=== PATIENT | female | born 1935 | race Caucasian/White ===

== ENCOUNTER 2016-08-30 11:21 | Emergency (ER) | payer MEDICARE ==
[~2016-08-30 11:21] MED LIST: ACET325T PO; APIX2.5T PO; CARD300C5 PO; CYCL1TAB29 PO; DIGO0.25 PO; DOCU100C PO; ISOS30TA3 PO; LISI-588 PO; MILKSUS PO; NEUR300C PO
[2016-08-30 11:24] VITALS: BP 162/77; PULSE 90; RESP 24; TEMP 97.4; O2SAT 98
[2016-08-30 11:30] VITALS: RESP 20; O2SAT 100
[2016-08-30] MEDS ORDERED: LORA-373 PO (11:39)
[2016-08-30] MEDS ORDERED: ASPI1TAB69 PO (11:39)
[2016-08-30] MEDS ORDERED: DIGO0.12 PO (11:39)
--- NOTE | 2016-08-30 11:42 | PD ---
HPI Chief Complaint: Chest Pain Time Seen by Provider: 11:41 Travel History International Travel<30 days: No Contact w/Intl Traveler<30days: No History of Present Illness HPI 79-year-old female with PMH of A. fib, HTN, HLD, COPD presents to the ED for evaluation less than 24 hour history of epigastric discomfort. Patient states symptoms onset last night after dinner. Rated 3/10, described as constant. Patient also complains of shortness of breath. Last bowel movement 2 days ago, nonbloody. She states this is her normal. She endorses occasional, nonproductive cough. She denies fevers, chills, diaphoresis, palpitations, abdominal pain, nausea, vomiting, dysuria, increased urinary urgency or back pain. She took an aspirin along with her daily medications this morning. She called her doctor's office for advice and was referred to the ED. PFSH Past Medical History Arthritis: Yes Asthma: No Blood Disorders: No Anxiety: Yes Depression: No Heart Rhythm Problems: No Cancer: No Cardiovascular Problems: Yes (PAD) High Cholesterol: Yes Chemotherapy: No Chest Pain: No Congestive Heart Failure: No COPD: Yes Cerebrovascular Accident: No Diminished Hearing: No Endocrine: No GERD: No Genitourinary: No Hiatal Hernia: No Hypertension: Yes Immune Disorder: No Implanted Vascular Access Dvce: Yes Kidney Stones: No Musculoskeletal: Yes (ARTHRITIS) Neurologic: No Psychiatric: Yes Reproductive: No Respiratory: Yes Migraines: No Radiation Therapy: No Renal Failure: No Seizures: No Sickle Cell Disease: No Sleep Apnea: No Ulcer: No : 0 Para: 0 Miscarriage: 0 : 0 Past Surgical History Abdominal Surgery: Yes (AAA 04/2011) AICD: No Arteriovenous Shunt: No Body Medical Devices: DIPAK EYE LENS Cardiac Surgery: No Ear Surgery: No Eye Surgery: Yes (DIPAK CATARACT SX) Genitourinary Surgery: No Gynecologic Surgery: Yes (HYST 1973) Hysterectomy: Yes Insulin Pump: No Joint Replacement: No Oral Surgery: Yes (3 teeth extracted) Pacemaker: No Thoracic Surgery: No Tonsillectomy: Yes Social History Alcohol Use: Yes (WINE DAILY) Tobacco Use: No (quit 1998) Substance Use: No Allergies-Medications (Allergen,Severity, Reaction): Coded Allergies: No Known Allergies (Verified , 08/30/16) Reported Meds & Prescriptions Reported Meds & Active Scripts Active Doxycycline (Doxycycline (Monohydrate)) 100 Mg Cap 100 Mg PO BID 7 Days Eliquis (Apixaban) 2.5 Mg Tab 2.5 Mg PO BID Reported Digoxin 0.125 Mg Tab 0.125 Mg PO DAILY Lorazepam 0.5 Mg Tab 0.5 Mg PO Q6H PRN Aspirin 81 Mg Tabdr 81 Mg PO DAILY Acetaminophen 325 Mg Tab 650 Mg PO Q4H PRN Isosorbide Mononitrate ER (Isosorbide Mononitrate) 30 Mg Lesia 30 Mg PO DAILY Zestril (Lisinopril) 2.5 Mg Tab 2.5 Mg PO HS Review of Systems Except as stated in HPI: all other systems reviewed are Neg Physical Exam Narrative GENERAL: Well-nourished, well-developed, pleasant elderly white female in no acute distress. SKIN: Warm and dry. HEAD: Normocephalic. EYES: No scleral icterus. No injection or drainage. NECK: Supple, trachea midline. No JVD or lymphadenopathy. CARDIOVASCULAR: Regular rate and rhythm without murmurs, gallops, or rubs. 2+ DP and radial pulses bilaterally. RESPIRATORY: Breath sounds clear and equal bilaterally. No accessory muscle use. GASTROINTESTINAL: Abdomen soft, nondistended. Tender to palpation in the right upper quadrant and epigastric areas. MUSCULOSKELETAL: No cyanosis, or edema. NEUROLOGICAL: Awake and alert. Cranial nerves II through XII intact. Motor and sensory grossly within normal limits. 5/5 muscle strength in all muscle groups. Normal speech. BACK: Nontender without obvious deformity. No CVA tenderness. Data Data Last Documented VS Vital Signs Date Time Temp Pulse Resp B/P Pulse Ox O2 Delivery O2 Flow Rate FiO2 08/30/16 12:11 70 154/73 143/80 08/30/16 11:30 20 100 Nasal Cannula 2 08/30/16 11:24 97.4 Orders Electrocardiogram (08/30/16 11:32) Basic Metabolic Panel (Bmp) (08/30/16 11:32) Ckmb (Isoenzyme) Profile (08/30/16 11:32) Complete Blood Count With Diff (08/30/16 11:32) Magnesium (Mg) (08/30/16 11:32) Prothrombin Time / Inr (Pt) (08/30/16 11:32) Act Partial Throm Time (Ptt) (08/30/16 11:32) Troponin I (08/30/16 11:32) Chest, Single Ap (08/30/16 11:32) Ecg Monitoring (08/30/16 11:32) Bilateral Bp Monitoring (08/30/16 11:32) Iv Access Insert/Monitor (08/30/16 11:32) Oximetry (08/30/16 11:32) Sodium Chloride 0.9% Flush (Ns Flush) (08/30/16 11:45) Lipase (08/30/16 11:45) Labs Laboratory Tests Test 08/30/16 11:45 White Blood Count 10.3 TH/MM3 Red Blood Count 4.58 MIL/MM3 Hemoglobin 13.4 GM/DL Hematocrit 39.1 % Mean Corpuscular Volume 85.4 FL Mean Corpuscular Hemoglobin 29.2 PG Mean Corpuscular Hemoglobin 34.2 % Concent Red Cell Distribution Width 16.0 % Platelet Count 239 TH/MM3 Mean Platelet Volume 9.0 FL Neutrophils (%) (Auto) 59.7 % Lymphocytes (%) (Auto) 32.4 % Monocytes (%) (Auto) 6.7 % Eosinophils (%) (Auto) 0.5 % Basophils (%) (Auto) 0.7 % Neutrophils # (Auto) 6.1 TH/MM3 Lymphocytes # (Auto) 3.3 TH/MM3 Monocytes # (Auto) 0.7 TH/MM3 Eosinophils # (Auto) 0.1 TH/MM3 Basophils # (Auto) 0.1 TH/MM3 CBC Comment DIFF FINAL Differential Comment Prothrombin Time 13.8 SEC Prothromb Time International 1.2 RATIO Ratio Activated Partial 28.4 SEC Thromboplast Time Sodium Level 137 MEQ/L Potassium Level 3.7 MEQ/L Chloride Level 101 MEQ/L Carbon Dioxide Level 25.1 MEQ/L Anion Gap 11 MEQ/L Blood Urea Nitrogen 23 MG/DL Creatinine 0.90 MG/DL Estimat Glomerular Filtration 60 ML/MIN Rate Random Glucose 120 MG/DL Calcium Level 9.6 MG/DL Magnesium Level 2.0 MG/DL Total Creatine Kinase 56 U/L Troponin I LESS THAN 0.02 NG/ML Lipase 92 U/L MDM Medical Decision Making Medical Screen Exam Complete: Yes Emergency Medical Condition: Yes Interpretation(s) EKG rate 81, sinus rhythm. SD interval 174, QRS 95, QTC 337. Normal axis. No ST elevations or depressions. Reviewed by Dr. Deluca. Differential Diagnosis Angina versus ACS versus GERD versus PUD versus pneumonia versus other Narrative Course 79-year-old female with PMH of A. fib, HTN, HLD, COPD presents to the ED for evaluation less than 24 hour history of epigastric discomfort. Symptoms onset last night after dinner. Rated 3/10, constant, accompanied by SOB. Last bowel movement 2 days ago, nonbloody. She states this is her normal. She endorses occasional, nonproductive cough. She denies fevers, chills, diaphoresis, palpitations, abdominal pain, nausea, vomiting, dysuria, increased urinary urgency or back pain. Took an aspirin this AM with no improvement of symptoms. Vitals reviewed. Physical exam reveals a nontoxic-appearing elderly white female in no acute distress. No appreciable M/R/G. Breath sounds clear and equal bilaterally. Abdomen tender to palpation in the epigastric area and right upper quadrant. Equal distal pulses bilaterally. No lower extremity edema. Patient was placed on continuous monitoring. IV was established. CBC: WBC 10.3, hemoglobin 13.4. INR 1.2. CMP: BUN 23. Lipase 92 Cardiac enzymes negative x 1. Chest x-ray: Localized area of mild consolidation in the right midlung questionable pneumonia or mass. Follow-up x-ray recommended in 3 weeks. EKG as above. Given her shortness of breath will treat for this questionable early pneumonia. Prescribed doxycycline 100 mg twice a day 7 days. Will defer treatment with PPI's to the primary care as patient takes digoxin. Patient is instructed to take all medication as prescribed, follow up with her primary care provider this week. Patient states she has follow-up with Dr. Keane on Wednesday and Dr. Caban on Wednesday. She was provided a copy of the x-ray report. We discussed reasons to return to the ED. She indicated understanding of the instructions and was amenable to plan of care. Patient is stable and discharged home. Diagnosis Primary Impression: Epigastric abdominal pain Additional Impression: Community acquired pneumonia Referrals: Primary Care Physician Patient Instructions: Community Acquired Pneumonia (ED), General Instructions Additional Instructions: Rest, hydrate. Take all medication as prescribed, even if your symptoms resolved. Ask Dr. Keane is proton pump inhibitors are safe for you. Follow up with Dr. Keane and Dr. Jamidar as planned. Return to the ED for any urgent or emergent medical condition. Med/Other Pt SpecificInfo: Prescription(s) given Scripts Doxycycline (Monohydrate) (Doxycycline)100 Mg [id number] Mg PO BID 7 Days Prov:Ran Deluca MD 08/30/16 Disposition: 01 DISCHARGE HOME Condition: Stable Angie Bañuelos Aug 30, 2016 11:42
[2016-08-30] MEDS ORDERED: SODIUM CHLORIDE 0.9% FLUSH 5 ML FLUSH IVF PRN (11:45)
--- NOTE | 2016-08-30 11:53 | RADRPT ---
EXAM DATE/TIME: 08/30/2016 11:32 [facility] COMPARISON: CHEST PA & LAT, May 14, 2016, 12:37. INDICATIONS : Chest Discomfort, Pressure. Short of Breath. MEDICAL HISTORY : Chronic obstructive pulmonary disease. Cardiovascular disease. Hypertension. Aneurysm, abdomina l. SURGICAL HISTORY : Abdominal aortic aneurysm repair. Hysterectomy. ENCOUNTER: Initial ACUITY: 1 day PAIN SCORE: 2/10 LOCATION: Bilateral chest FINDINGS: Mild, patchy infiltrates seen in the right midlung. Lungs otherwise appear clear. No pleural effusion seen. No pneumothorax. Heart size stable, upper limits of normal. Thoracic aorta is tortuous and atherosclerotic. CONCLUSION: Localized area of mild consolidation in the right midlung, presumably pneumonia although a mass could appear similar. Medical management and followup 2 view chest x-ray in approximately 3 weeks recommen ded. Ajit Vazquez MD on August 30, 2016 at 11:50 Board Certified Radiologist. This report was verified electronically.
[2016-08-30 12:04] LABS: AUTOMATED NEUTROPHIL # 6.1 TH/MM3 (1.8-7.7); BASOPHIL # 0.1 TH/MM3 (0-0.2); BASOPHIL % 0.7 % (0.0-2.0); EOSINOPHIL # 0.1 TH/MM3 (0-0.4); EOSINOPHIL % 0.5 % (0.0-4.0); HEMATOCRIT 39.1 % (35.0-46.0); HEMO FLAGS DIFF FINAL; LYMPH % 32.4 % (9.0-44.0); LYMPHOCYTE # 3.3 TH/MM3 (1.0-4.8); MEAN CELL VOLUME 85.4 FL (80.0-100.0); MEAN CORPUSCULAR HEMOGLOBIN 29.2 PG (27.0-34.0); MEAN CORPUSCULAR HGB CONC 34.2 % (32.0-36.0); MONO % 6.7 % (0.0-8.0); NEUT % 59.7 % (16.0-70.0); PLATELET COUNT 239 TH/MM3 (150-450); RED BLOOD COUNT 4.58 MIL/MM3 (4.00-5.30); WHITE BLOOD COUNT 10.3 TH/MM3 (4.0-11.0)
[2016-08-30 12:11] VITALS: BP_SYST 143; BP_SYST 154; BP_DIAS 73; BP_DIAS 80; PULSE 70
[2016-08-30 12:11] LABS: APTT (PATIENT) 28.4 SEC (24.3-30.1); INTERNATIONAL NORMALIZED RATIO 1.2 RATIO; PROTHROMBIN TIME - PATIENT 13.8 SEC (9.8-11.6)
[2016-08-30 12:17] LABS: ANION GAP 11 MEQ/L (5-15); BICARBONATE 25.1 MEQ/L (21.0-32.0); BLOOD UREA NITROGEN 23 MG/DL (7-18); CHLORIDE 101 MEQ/L (98-107); GLOMERULAR FILTRATION RATE 60 ML/MIN (>89); POTASSIUM 3.7 MEQ/L (3.5-5.1); SODIUM (NA) 137 MEQ/L (136-145)
[2016-08-30 12:23] LABS: CREATINE KINASE 56 U/L (26-192)
[2016-08-30] MEDS ORDERED: DOXY1CAP91 PO (13:24)
--- NOTE | 2016-08-30 13:24 | EKG ---
Date Performed: 08/30/2016 Time Performed: 11:32:44 PTAGE: 81 years EKG: Sinus rhythm NONSPECIFIC ST ABNORMALITY BORDERLINE ECG PREVIOUS TRACING : 05/17/2016 12.32 Compared to previous tracing, sinus rhythm has replaced atr ial fibrillation. DOCTOR: Rich Garcia Interpretating Date/Time 08/30/2016 13:24:06
== END 2016-08-30 14:17 | disposition home or self-care (01) ==
LOC: NEPC 11:21
DX: R10.13 Epigastric pain (principal); J18.9 Pneumonia, unspecified organism; J44.9 Chronic obstructive pulmonary disease, unspecified; I10 Essential (primary) hypertension; I48.91 Unspecified atrial fibrillation; Z79.01 Long term (current) use of anticoagulants; Z87.891 Personal history of nicotine dependence
CPT/HCPCS: 71010; 80048; 82550; 83690; 83735; 84484; 85025; 85610; 85730; 93005

== ENCOUNTER 2017-01-17 11:10 | Emergency (ER) | payer MEDICARE ==
[~2017-01-17] VITALS: Ht 160 cm; Wt 57.0 kg
[~2017-01-17 11:10] MED LIST changes: +ASPI1TAB69 PO; -CARD300C5 PO; -CYCL1TAB29 PO; +DIGO0.12 PO; -DIGO0.25 PO; -DOCU100C PO; +DOXY1CAP91 PO; +LORA-373 PO; -MILKSUS PO; -NEUR300C PO
[2017-01-17 11:12] VITALS: BP 213/99; PULSE 74; RESP 20; TEMP 97.9; O2SAT 99
[2017-01-17 11:29] VITALS: BP 203/111; PULSE 74; RESP 20; TEMP 98.6; O2SAT 93
[2017-01-17] MEDS ORDERED: hydrALAZINE HCL 20 MG/ML VIAL IV PUSH ONE (11:30)
[2017-01-17] MEDS ORDERED: SODIUM CHLORIDE 0.9% FLUSH 10 ML FLUSH IVF PRN (11:30)
--- NOTE | 2017-01-17 11:41 | PD ---
HPI Chief Complaint: Hypertension Time Seen by Provider: 11:32 Travel History International Travel<30 days: No Contact w/Intl Traveler<30days: No Traveled to known affect area: No History of Present Illness HPI Patient is an 82-year-old well-appearing female presenting for evaluation of elevated blood pressure readings. Patient has a history of hypertension, she states she took her medications at 7 AM this morning. This morning she drank orange juice and coffee, she started burping so she took Maalox, this made her feel jumpy so she checked her blood pressure, she got a reading of 195/91. She called her primary doctor who advised her to come to the emergency department. She denies any abdominal pain, nausea, vomiting, chest pain. She states that she is short of breath, she has a history of COPD. She reports feeling more short of breath since August or September when she was started on flecainide. She denies any activity intolerance, she states that she attempts to walk most days, she is limited by knee pain. PFSH Past Medical History Hx Anticoagulant Therapy: Yes (ELIQUIS) AAA: Yes Arthritis: Yes Asthma: No Atrial Fibrillation: Yes Blood Disorders: No Anxiety: Yes Depression: No Cancer: No High Cholesterol: Yes Chemotherapy: No Chest Pain: No Congestive Heart Failure: No COPD: Yes Cerebrovascular Accident: No Diminished Hearing: No Endocrine: No GERD: No Genitourinary: No Hiatal Hernia: No Hypertension: Yes Immune Disorder: No Kidney Stones: No Neurologic: No Reproductive: No Migraines: No Radiation Therapy: No Renal Failure: No Seizures: No Sickle Cell Disease: No Sleep Apnea: No Ulcer: No Tetanus Vaccination: Unknown ?: Not : 0 Para: 0 Miscarriage: 0 : 0 Past Surgical History Abdominal Surgery: Yes (AAA 04/2011) AICD: No Arteriovenous Shunt: No Body Medical Devices: DIPAK EYE LENS Cardiac Surgery: No Ear Surgery: No Eye Surgery: Yes (DIPAK CATARACT SX) Genitourinary Surgery: No Hysterectomy: Yes Insulin Pump: No Joint Replacement: No Pacemaker: No Thoracic Surgery: No Tonsillectomy: Yes Social History Alcohol Use: Yes (WINE DAILY) Tobacco Use: No (quit 1998) Substance Use: No Allergies-Medications (Allergen,Severity, Reaction): Coded Allergies: No Known Allergies (Verified , 01/17/17) Reported Meds & Prescriptions Reported Meds & Active Scripts Active Eliquis (Apixaban) 2.5 Mg Tab 2.5 Mg PO BID Reported Digoxin 0.125 Mg Tab 0.125 Mg PO DAILY Lorazepam 0.5 Mg Tab 0.5 Mg PO Q6H PRN Zestril (Lisinopril) 2.5 Mg Tab 2.5 Mg PO HS Review of Systems Except as stated in HPI: all other systems reviewed are Neg General / Constitutional: No: Fever, Chills Eyes: No: Blurred Vision HENT: No: Headaches, Lightheadedness Cardiovascular: No: Chest Pain or Discomfort, Palpitations, Dyspnea on exertion , Edema Respiratory: Positive: Shortness of Breath (appears chronic) Gastrointestinal: Positive: Indigestion, No: Nausea, Vomiting, Abdominal Pain Musculoskeletal: No: Myalgias Neurologic: No: Weakness, Dizziness, Syncope, Focal Abnormalities Physical Exam Narrative GENERAL: Well-appearing, well-developed, well-nourished elderly female. Resting in no acute distress. SKIN: Focused skin assessment warm/dry. HEAD: Atraumatic. Normocephalic. EYES: Pupils equal and round. No scleral icterus. No injection or drainage. ENT: No nasal bleeding or discharge. Mucous membranes pink and moist. NECK: Trachea midline. No JVD. CARDIOVASCULAR: Regular rate and rhythm. No murmur appreciated. RESPIRATORY: No accessory muscle use. Clear to auscultation. Breath sounds equal bilaterally. GASTROINTESTINAL: Abdomen soft, non-tender, nondistended. Hepatic and splenic margins not palpable. MUSCULOSKELETAL: No obvious deformities. No clubbing. No cyanosis. No edema. NEUROLOGICAL: Awake and alert. No obvious cranial nerve deficits. Motor grossly within normal limits. Normal speech. PSYCHIATRIC: Appropriate mood and affect; insight and judgment normal. Data Data Last Documented VS Vital Signs Date Time Temp Pulse Resp B/P Pulse Ox O2 Delivery O2 Flow Rate FiO2 01/17/17 12:11 74 20 143/68 97 Nasal Cannula 2 01/17/17 11:29 98.6 Orders Electrocardiogram (01/17/17 11:30) Ckmb (Isoenzyme) Profile (01/17/17 11:30) Complete Blood Count With Diff (01/17/17 11:30) Comprehensive Metabolic Panel (01/17/17 11:30) Magnesium (Mg) (01/17/17 11:30) Prothrombin Time / Inr (Pt) (01/17/17 11:30) Act Partial Throm Time (Ptt) (01/17/17 11:30) Troponin I (01/17/17 11:30) Lipase (01/17/17 11:30) Chest, Single Ap (01/17/17 11:30) Ecg Monitoring (01/17/17 11:30) Bilateral Bp Monitoring (01/17/17 11:30) Iv Access Insert/Monitor (01/17/17 11:30) Oximetry (01/17/17 11:30) Oxygen Administration (01/17/17 11:30) Sodium Chloride 0.9% Flush (Ns Flush) (01/17/17 11:30) Hydralazine Inj (Apresoline Inj) (01/17/17 11:30) Ct Thorax/ Chest W Iv Contrast (01/17/17 ) Sodium Chlorid 0.9% 500 Ml Inj (Ns 500 M (01/17/17 12:45) Iohexol 350 Inj (Omnipaque 350 Inj) (01/17/17 12:55) Labs Laboratory Tests Test 01/17/17 11:30 White Blood Count 9.9 TH/MM3 Red Blood Count 5.02 MIL/MM3 Hemoglobin 14.4 GM/DL Hematocrit 44.0 % Mean Corpuscular Volume 87.7 FL Mean Corpuscular Hemoglobin 28.7 PG Mean Corpuscular Hemoglobin 32.7 % Concent Red Cell Distribution Width 15.3 % Platelet Count 259 TH/MM3 Mean Platelet Volume 8.4 FL Neutrophils (%) (Auto) 61.3 % Lymphocytes (%) (Auto) 29.3 % Monocytes (%) (Auto) 7.6 % Eosinophils (%) (Auto) 0.9 % Basophils (%) (Auto) 0.9 % Neutrophils # (Auto) 6.0 TH/MM3 Lymphocytes # (Auto) 2.9 TH/MM3 Monocytes # (Auto) 0.8 TH/MM3 Eosinophils # (Auto) 0.1 TH/MM3 Basophils # (Auto) 0.1 TH/MM3 CBC Comment DIFF FINAL Differential Comment Prothrombin Time 13.5 SEC Prothromb Time International 1.2 RATIO Ratio Activated Partial 29.2 SEC Thromboplast Time Sodium Level 138 MEQ/L Potassium Level 3.9 MEQ/L Chloride Level 100 MEQ/L Carbon Dioxide Level 27.7 MEQ/L Anion Gap 10 MEQ/L Blood Urea Nitrogen 24 MG/DL Creatinine 1.01 MG/DL Estimat Glomerular Filtration 52 ML/MIN Rate Random Glucose 113 MG/DL Calcium Level 9.5 MG/DL Magnesium Level 2.2 MG/DL Total Bilirubin 0.6 MG/DL Aspartate Amino Transf 16 U/L (AST/SGOT) Alanine Aminotransferase 16 U/L (ALT/SGPT) Alkaline Phosphatase 134 U/L Total Creatine Kinase 66 U/L Troponin I LESS THAN 0.02 NG/ML Total Protein 8.4 GM/DL Albumin 4.1 GM/DL Lipase 86 U/L [facility] Medical Decision Making Medical Screen Exam Complete: Yes Emergency Medical Condition: Yes Interpretation(s) Last Impressions Chest X-Ray 01/17/17 1130 Signed Impressions: Service Date/Time: Tuesday, January 17, 2017 11:32 - CONCLUSION: Enlarging rounded opacity within the right lung base. CT of the thorax should be considered to evaluate for possible mass. COPD Benjamin Polanco MD Chest CT 01/17/17 0000 Signed Impressions: Service Date/Time: Tuesday, January 17, 2017 12:50 - CONCLUSION: Right upper lobe , right middle lobe masses with airspace process right lower lobe and nodule within the lingula. These are associated with bronchi could potentially be inflammatory process and pneumonia, however underlying malignancy is not excluded. Radha Martin MD Laboratory Tests Test 01/17/17 11:30 White Blood Count 9.9 TH/MM3 Red Blood Count 5.02 MIL/MM3 Hemoglobin 14.4 GM/DL Hematocrit 44.0 % Mean Corpuscular Volume 87.7 FL Mean Corpuscular Hemoglobin 28.7 PG Mean Corpuscular Hemoglobin 32.7 % Concent Red Cell Distribution Width 15.3 % Platelet Count 259 TH/MM3 Mean Platelet Volume 8.4 FL Neutrophils (%) (Auto) 61.3 % Lymphocytes (%) (Auto) 29.3 % Monocytes (%) (Auto) 7.6 % Eosinophils (%) (Auto) 0.9 % Basophils (%) (Auto) 0.9 % Neutrophils # (Auto) 6.0 TH/MM3 Lymphocytes # (Auto) 2.9 TH/MM3 Monocytes # (Auto) 0.8 TH/MM3 Eosinophils # (Auto) 0.1 TH/MM3 Basophils # (Auto) 0.1 TH/MM3 CBC Comment DIFF FINAL Differential Comment Prothrombin Time 13.5 SEC Prothromb Time International 1.2 RATIO Ratio Activated Partial 29.2 SEC Thromboplast Time Sodium Level 138 MEQ/L Potassium Level 3.9 MEQ/L Chloride Level 100 MEQ/L Carbon Dioxide Level 27.7 MEQ/L Anion Gap 10 MEQ/L Blood Urea Nitrogen 24 MG/DL Creatinine 1.01 MG/DL Estimat Glomerular Filtration 52 ML/MIN Rate Random Glucose 113 MG/DL Calcium Level 9.5 MG/DL Magnesium Level 2.2 MG/DL Total Bilirubin 0.6 MG/DL Aspartate Amino Transf 16 U/L (AST/SGOT) Alanine Aminotransferase 16 U/L (ALT/SGPT) Alkaline Phosphatase 134 U/L Total Creatine Kinase 66 U/L Troponin I LESS THAN 0.02 NG/ML Total Protein 8.4 GM/DL Albumin 4.1 GM/DL Lipase 86 U/L Vital Signs Date Time Temp Pulse Resp B/P Pulse Ox O2 Delivery O2 Flow Rate FiO2 01/17/17 11:29 98.6 74 20 203/111 93 Room Air 01/17/17 11:12 97.9 74 20 213/99 99 Room Air Differential Diagnosis Malignant hypertension versus anxiety versus gastritis versus ACS versus electrolyte abnormality versus other Narrative Course Patient is an 82-year-old female presenting for evaluation of hypertension. She has no other complaints except mild shortness of breath which is likely secondary to her COPD. No orthopnea, exercise intolerance Abnormal findings on auscultation. Labs, imaging, EKG ordered and pending. Hydralazine ordered for blood pressure management. CBC is unremarkable, chemistry with a slight bump in the BUN and creatinine. Coags are unremarkable. Chest x-ray read by radiologist shows Enlarging rounded opacity within the right lung base. CT of the thorax should be considered to evaluate for possible mass. CT scan of the chest ordered and pending. Discussed with patient that there was an abnormal finding on her chest x-ray and that we would be obtaining a CAT scan of her chest. Patient's blood pressure has normalized, patient is resting comfortably. EKG shows sinus rhythm with a rate of 72 Cardiac enzymes negative [address] of the chest shows a right upper, middle lobe masses with airspace process in the right lower lobe nodule within the lingula. These are associated bronchitis potentially inflammatory process and pneumonia however an underlying malignancy is not excluded. The findings were discussed with on-call physician for patient's primary care provider. Patient was given the choice to be admitted or to follow-up in the office. Patient requesting to follow-up in the office. Patient appears well, no other acute findings identified today. Her blood pressure has normalized. Patient was advised to follow-up with Dr. Keane tomorrow, she was advised to return to emergency department immediately for any new or worsening symptoms. Patient will be started on an antibiotics empirically. Patient verbalized understanding of discharge instructions, CT scan results. Patient is stable for discharge. Diagnosis Primary Impression: HTN (hypertension) Qualified Code: I10 - Hypertension, unspecified type Additional Impressions: Mass of right lung Pneumonia Qualified Code: J18.9 - Pneumonia of right lung due to infectious organism, unspecified part of lung Referrals: Primary Care Physician Follow-up with Dr. Keane in one to 2 days, call office for appointment Patient Instructions: Community Acquired Pneumonia (GEN), General Instructions , Hypertension (ED) Additional Instructions: Follow-up with Dr. Keane in one to 2 days Return to emergency department immediately for any new or worsening symptoms Take medications as directed Med/Other Pt SpecificInfo: Prescription(s) given Scripts Amoxicillin-Clavulanate (Augmentin)875-125 Mg Tab1 Tab PO BID 10 Days Ref 0 Prov:Hattie Wallace 01/17/17 Disposition: 01 DISCHARGE HOME Condition: Stable Hattie Wallace Jan 17, 2017 11:41
[2017-01-17 11:44] VITALS: RESP 18; O2SAT 98
[2017-01-17 11:59] LABS: BASOPHIL # 0.1 TH/MM3 (0-0.2); BASOPHIL % 0.9 % (0.0-2.0); EOSINOPHIL # 0.1 TH/MM3 (0-0.4); EOSINOPHIL % 0.9 % (0.0-4.0); HEMO FLAGS DIFF FINAL; LYMPH % 29.3 % (9.0-44.0); LYMPHOCYTE # 2.9 TH/MM3 (1.0-4.8); MEAN CELL VOLUME 87.7 FL (80.0-100.0); MEAN CORPUSCULAR HEMOGLOBIN 28.7 PG (27.0-34.0); MEAN CORPUSCULAR HGB CONC 32.7 % (32.0-36.0); MONO % 7.6 % (0.0-8.0); NEUT % 61.3 % (16.0-70.0); PLATELET COUNT 259 TH/MM3 (150-450); RED BLOOD COUNT 5.02 MIL/MM3 (4.00-5.30); RED CELL DISTRIBUTION WIDTH 15.3 % (11.6-17.2); WHITE BLOOD COUNT 9.9 TH/MM3 (4.0-11.0)
[2017-01-17 12:03] LABS: ALT (GPT) 16 U/L (10-53); ANION GAP 10 MEQ/L (5-15); AST (GOT) 16 U/L (15-37); BICARBONATE 27.7 MEQ/L (21.0-32.0); BLOOD UREA NITROGEN 24 MG/DL (7-18); CHLORIDE 100 MEQ/L (98-107); GLOMERULAR FILTRATION RATE 52 ML/MIN (>89); MAGNESIUM 2.2 MG/DL (1.5-2.5); POTASSIUM 3.9 MEQ/L (3.5-5.1); SODIUM (NA) 138 MEQ/L (136-145)
[2017-01-17 12:08] LABS: ALKALINE PHOSPHATASE 134 U/L (45-117); TOTAL BILIRUBIN ADULT 0.6 MG/DL (0.2-1.0)
--- NOTE | 2017-01-17 12:10 | RADRPT ---
EXAM DATE/TIME: 01/17/2017 11:32 [facility] COMPARISON: CHEST SINGLE AP, August 30, 2016, 11:32. INDICATIONS : Lightheaded and shortness of breath. MEDICAL HISTORY : Abdominal aortic aneurysm. SURGICAL HISTORY : Abdominal aortic aneurysm repair. ENCOUNTER: Initial ACUITY: 1 day PAIN SCORE: 0/10 LOCATION: Bilateral chest FINDINGS: Rounded opacity in the right lung base has increased in size and conspicuity compared to the previous study. Lungs are hyperinflated. Interstitial scarring is noted. Heart is at the upper limits of normal in size. CONCLUSION: Enlarging rounded opacity within the right lung base. CT of the thorax should be considered to evalua te for possible mass. COPD Benjamin Polanco MD on January 17, 2017 at 12:07 Board Certified Radiologist. This report was verified electronically.
[2017-01-17 12:11] VITALS: BP 143/68; PULSE 74; RESP 20; O2SAT 97
[2017-01-17 12:15] LABS: INTERNATIONAL NORMALIZED RATIO 1.2 RATIO; PROTHROMBIN TIME - PATIENT 13.5 SEC (9.8-11.6)
[2017-01-17 12:18] LABS: CREATINE KINASE 66 U/L (26-192)
[2017-01-17 12:23] LABS: APTT (PATIENT) 29.2 SEC (24.3-30.1)
[2017-01-17] MEDS ORDERED: SODIUM CHLORID 0.9% 500 ML INJ 500 ML IV ONE (12:45)
[2017-01-17] MEDS ORDERED: IOHEXOL 350 MG/ML 10 ML VIAL (for RAD DIAG) IV ONE (12:55)
--- NOTE | 2017-01-17 13:07 | RADRPT ---
EXAM DATE/TIME: 01/17/2017 12:50 [facility] COMPARISON: CHEST SINGLE AP, January 17, 2017, 11:32. INDICATIONS : Tightness in chest. Abnormal chest x-ray. IV CONTRAST: 75 cc Omnipaque 350 (iohexol) IV RADIATION DOSE: 3.34 CTDIvol (mGy) MEDICAL HISTORY : Aneurysm, abdominal. Cardiovascular disease Hypertension. SURGICAL HISTORY : Hysterectomy. ENCOUNTER: Initial ACUITY: 1 day PAIN SCALE: 5/10 LOCATION: Bilateral chest TECHNIQUE: Volumetric scanning of the chest was performed. Using automated exposure control and adjustment of t he mA and/or kV according to patient size, radiation dose was kept as low as reasonably achievable to obtain optimal diagnostic quality images. DICOM format image data is available electronically for review and comparison. Follow-up recommendations for incidentally detected pulmonary nodules are based at a minimum on nodul e size and patient risk factors according to Fleischner Society Guidelines. FINDINGS: There is an approximate 3.2 cm masslike area in the right upper lobe posteriorly. There is a sep arate mass in the right middle lobe laterally measures 3.7 cm in size. There is an approximate 6 mm n odule left upper lobe with hazy opacity in right lower lobe posteriorly. No appreciable pathological adenopathy seen. Coronary artery calcifications are seen typically seen with CAD and need to be evalu ated clinically. There are atherosclerotic calcifications of the aorta due to chronic atherosclerotic disease. CONCLUSION: Right upper lobe, right middle lobe masses with airspace process right lower lobe and nodule within t he lingula. These are associated with bronchi could potentially be inflammatory process and pneumonia , however underlying malignancy is not excluded. Radha Martin MD on January 17, 2017 at 13:01 Board Certified Radiologist. This report was verified electronically.
[2017-01-17] MEDS ORDERED: ATEN25TA PO (13:50)
[2017-01-17] MEDS ORDERED: FLEC1TAB8 PO (13:50)
[2017-01-17] MEDS ORDERED: AUGM875T3 PO (13:58)
--- NOTE | 2017-01-17 14:11 | PD ---
Data Data Last Documented VS Vital Signs Date Time Temp Pulse Resp B/P Pulse Ox O2 Delivery O2 Flow Rate FiO2 01/17/17 12:11 74 20 143/68 97 Nasal Cannula 2 01/17/17 11:29 98.6 Orders Electrocardiogram (01/17/17 11:30) Ckmb (Isoenzyme) Profile (01/17/17 11:30) Complete Blood Count With Diff (01/17/17 11:30) Comprehensive Metabolic Panel (01/17/17 11:30) Magnesium (Mg) (01/17/17 11:30) Prothrombin Time / Inr (Pt) (01/17/17 11:30) Act Partial Throm Time (Ptt) (01/17/17 11:30) Troponin I (01/17/17 11:30) Lipase (01/17/17 11:30) Chest, Single Ap (01/17/17 11:30) Ecg Monitoring (01/17/17 11:30) Bilateral Bp Monitoring (01/17/17 11:30) Iv Access Insert/Monitor (01/17/17 11:30) Oximetry (01/17/17 11:30) Oxygen Administration (01/17/17 11:30) Sodium Chloride 0.9% Flush (Ns Flush) (01/17/17 11:30) Hydralazine Inj (Apresoline Inj) (01/17/17 11:30) Ct Thorax/ Chest W Iv Contrast (01/17/17 ) Sodium Chlorid 0.9% 500 Ml Inj (Ns 500 M (01/17/17 12:45) Iohexol 350 Inj (Omnipaque 350 Inj) (01/17/17 12:55) Labs Laboratory Tests Test 01/17/17 11:30 White Blood Count 9.9 TH/MM3 Red Blood Count 5.02 MIL/MM3 Hemoglobin 14.4 GM/DL Hematocrit 44.0 % Mean Corpuscular Volume 87.7 FL Mean Corpuscular Hemoglobin 28.7 PG Mean Corpuscular Hemoglobin 32.7 % Concent Red Cell Distribution Width 15.3 % Platelet Count 259 TH/MM3 Mean Platelet Volume 8.4 FL Neutrophils (%) (Auto) 61.3 % Lymphocytes (%) (Auto) 29.3 % Monocytes (%) (Auto) 7.6 % Eosinophils (%) (Auto) 0.9 % Basophils (%) (Auto) 0.9 % Neutrophils # (Auto) 6.0 TH/MM3 Lymphocytes # (Auto) 2.9 TH/MM3 Monocytes # (Auto) 0.8 TH/MM3 Eosinophils # (Auto) 0.1 TH/MM3 Basophils # (Auto) 0.1 TH/MM3 CBC Comment DIFF FINAL Differential Comment Prothrombin Time 13.5 SEC Prothromb Time International 1.2 RATIO Ratio Activated Partial 29.2 SEC Thromboplast Time Sodium Level 138 MEQ/L Potassium Level 3.9 MEQ/L Chloride Level 100 MEQ/L Carbon Dioxide Level 27.7 MEQ/L Anion Gap 10 MEQ/L Blood Urea Nitrogen 24 MG/DL Creatinine 1.01 MG/DL Estimat Glomerular Filtration 52 ML/MIN Rate Random Glucose 113 MG/DL Calcium Level 9.5 MG/DL Magnesium Level 2.2 MG/DL Total Bilirubin 0.6 MG/DL Aspartate Amino Transf 16 U/L (AST/SGOT) Alanine Aminotransferase 16 U/L (ALT/SGPT) Alkaline Phosphatase 134 U/L Total Creatine Kinase 66 U/L Troponin I LESS THAN 0.02 NG/ML Total Protein 8.4 GM/DL Albumin 4.1 GM/DL Lipase 86 U/L MDM Supervised Visit with YA: Yes Narrative Course I, Dr. Petersen, have reviewed the advance practice practitioner's documentation and am in agreement, met with the patient face to face, made the diagnosis, and the medical decision making was done by me. *My assessment and Findings: Discussed the patient at length with Hattie BANDA. Patient is here for her symptoms generalized weakness and some mild shortness of breath. Workup was significant for a mass of the right long, possible pneumonia possible malignancy. I had a lengthy conversation with the patient about this diagnosis. She appears well in no obvious respiratory distress. Vital signs are reassuring as well as labs. She would like to go home, will place on antibiotics and discussed need follow-up with her primary care physician further workup of the mass and she is agreeable. She appears reliable for follow-up and is stable for discharge. Diagnosis Primary Impression: HTN (hypertension) Qualified Code: I10 - Hypertension, unspecified type Additional Impressions: Mass of right lung Pneumonia Qualified Code: J18.9 - Pneumonia of right lung due to infectious organism, unspecified part of lung Referrals: Primary Care Physician Follow-up with Dr. Keane in one to 2 days, call office for appointment Patient Instructions: General Instructions, Community Acquired Pneumonia (GEN) , Hypertension (ED) Departure Forms: Tests/Procedures Additional Instruction: Follow-up with Dr. Keane in one to 2 days Return to emergency department immediately for any new or worsening symptoms Take medications as directed Scripts Amoxicillin-Clavulanate (Augmentin)875-125 Mg Tab1 Tab PO BID 10 Days Ref 0 Prov:Hattie Wallace 01/17/17 Disposition: 01 DISCHARGE HOME Condition: Stable Lincoln Petersen MD Jan 17, 2017 14:11
--- NOTE | 2017-01-18 19:39 | EKG ---
Date Performed: 01/17/2017 Time Performed: 11:34:50 PTAGE: 82 years EKG: Sinus rhythm MARKED LEFT AXIS DEVIATION POSSIBLE SEPTAL MYOCARDIAL INFARCTION ABNORMAL ECG PREVIOUS TRACING : 08/30/2016 11.32 Since previous tracing, no significant change noted DOCTOR: Angelina Caban Interpretating Date/Time 01/18/2017 19:37:56
== END 2017-01-17 14:32 | disposition home or self-care (01) ==
LOC: NEPE 11:10
DX: I10 Essential (primary) hypertension (principal); J18.9 Pneumonia, unspecified organism; R53.1 Weakness; R06.02 Shortness of breath; I48.91 Unspecified atrial fibrillation; F41.9 Anxiety disorder, unspecified; E78.00 Pure hypercholesterolemia, unspecified; J44.9 Chronic obstructive pulmonary disease, unspecified; Z79.01 Long term (current) use of anticoagulants
CPT/HCPCS: 71010; 71260; 80053; 82550; 83690; 83735; 84484; 85025; 85610; 85730; 93005; 96361; 96374; 99285; J0360; J7040; Q9967

== ENCOUNTER 2017-01-19 19:14 | Emergency (ER) | payer MEDICARE ==
[~2017-01-19 19:14] MED LIST changes: -ACET325T PO; -ASPI1TAB69 PO; +ATEN25TA PO; +AUGM875T3 PO; -DOXY1CAP91 PO; +FLEC1TAB8 PO; -ISOS30TA3 PO
[2017-01-19 19:17] VITALS: BP 207/92; PULSE 85; RESP 16; TEMP 98.1; O2SAT 96
[2017-01-19] MEDS ORDERED: hydrALAZINE HCL 20 MG/ML VIAL IV PUSH ONE (22:30)
[2017-01-19 22:32] LABS: AUTOMATED NEUTROPHIL # 5.2 TH/MM3 (1.8-7.7); BASOPHIL # 0.1 TH/MM3 (0-0.2); BASOPHIL % 1.3 % (0.0-2.0); EOSINOPHIL # 0.1 TH/MM3 (0-0.4); EOSINOPHIL % 1.4 % (0.0-4.0); HEMATOCRIT 41.6 % (35.0-46.0); HEMO FLAGS DIFF FINAL; LYMPH % 27.3 % (9.0-44.0); LYMPHOCYTE # 2.3 TH/MM3 (1.0-4.8); MEAN CELL VOLUME 87.3 FL (80.0-100.0); MEAN CORPUSCULAR HGB CONC 33.2 % (32.0-36.0); MONO % 8.9 % (0.0-8.0); NEUT % 61.1 % (16.0-70.0); PLATELET COUNT 223 TH/MM3 (150-450); RED BLOOD COUNT 4.76 MIL/MM3 (4.00-5.30); RED CELL DISTRIBUTION WIDTH 14.8 % (11.6-17.2); WHITE BLOOD COUNT 8.5 TH/MM3 (4.0-11.0)
[2017-01-19] MEDS ORDERED: LEXA5TAB PO (22:41)
[2017-01-19] MEDS ORDERED: ASPI81TA5 PO (22:41)
[2017-01-19 22:43] LABS: ANION GAP 8 MEQ/L (5-15); BICARBONATE 26.3 MEQ/L (21.0-32.0); BLOOD UREA NITROGEN 28 MG/DL (7-18); CHLORIDE 101 MEQ/L (98-107); GLOMERULAR FILTRATION RATE 53 ML/MIN (>89); POTASSIUM 3.8 MEQ/L (3.5-5.1); SODIUM (NA) 135 MEQ/L (136-145)
--- NOTE | 2017-01-19 22:49 | PD ---
HPI Chief Complaint: Hypertension Time Seen by Provider: 22:36 Travel History International Travel<30 days: No Contact w/Intl Traveler<30days: No Traveled to known affect area: No History of Present Illness HPI 82 yo female here for evaluation of hypertension. Patient has a chronic history of hypertension. She was seen here earlier this week. She was diagnosed with pneumonia and since taking Augmentin here symptoms have improved. States that today her BP was elevated and worsened as the night progressed. Patient states that her blood pressure has been in the 200s. Per patient she went to see her primary care doctor on Wednesday and was given lisinopril and told to increase her lisinopril if her symptoms worsen. Per patient she has a history of A. fib. She denies any chest pain. No shortness of breath. She denies any dizziness or lightheadedness. Per patient this afternoon she had the "emotional call " and believes that this is what increased the blood pressure. He states he's had this before. He has no allergies to medication. No chest pain. No shortness of breath no numbness, tilling, weakness. PFSH Past Medical History Hx Anticoagulant Therapy: Yes (ELIQUIS) AAA: Yes Arthritis: Yes Asthma: No Atrial Fibrillation: Yes Blood Disorders: No Anxiety: Yes Depression: No Cancer: No High Cholesterol: Yes Chemotherapy: No Chest Pain: No Congestive Heart Failure: No COPD: Yes Cerebrovascular Accident: No Diminished Hearing: No Endocrine: No GERD: No Genitourinary: No Hiatal Hernia: No Hypertension: Yes Immune Disorder: No Implanted Vascular Access Dvce: Yes Kidney Stones: No Neurologic: No Reproductive: No Migraines: No Radiation Therapy: No Renal Failure: No Seizures: No Sickle Cell Disease: No Sleep Apnea: No Ulcer: No : 0 Para: 0 Miscarriage: 0 : 0 Past Surgical History Abdominal Surgery: Yes (AAA 04/2011) AICD: No Arteriovenous Shunt: No Body Medical Devices: DIPAK EYE LENS Cardiac Surgery: No Ear Surgery: No Eye Surgery: Yes (DIPAK CATARACT SX) Genitourinary Surgery: No Hysterectomy: Yes Insulin Pump: No Joint Replacement: No Pacemaker: No Thoracic Surgery: No Tonsillectomy: Yes Other Surgery: Yes (AAA; HYSTERECTOMY; TONSILECTOMY; CATARACT SX) Social History Alcohol Use: Yes (WINE DAILY) Tobacco Use: No (1998) Substance Use: No Allergies-Medications (Allergen,Severity, Reaction): Coded Allergies: No Known Allergies (Verified , 01/19/17) Reported Meds & Prescriptions Reported Meds & Active Scripts Active Augmentin (Amoxicillin-Clavulanate) 875-125 Mg Tab 1 Tab PO BID 10 Days Eliquis (Apixaban) 2.5 Mg Tab 2.5 Mg PO BID Reported Flecainide (Flecainide Acetate) 50 Mg Tab 50 Mg PO DAILY Atenolol 25 Mg Tab 25 Mg PO DAILY Digoxin 0.125 Mg Tab 0.125 Mg PO DAILY Lorazepam 0.5 Mg Tab 0.5 Mg PO Q6H PRN Zestril (Lisinopril) 2.5 Mg Tab 2.5 Mg PO HS Review of Systems Except as stated in HPI: all other systems reviewed are Neg Physical Exam Narrative GENERAL: SKIN: Warm and dry. HEAD: Atraumatic. Normocephalic. EYES: Pupils equal and round. No scleral icterus. No injection or drainage. ENT: No nasal bleeding or discharge. Mucous membranes pink and moist. Tongue is midline. No uvula deviation. NECK: Trachea midline. No JVD. CARDIOVASCULAR: Regular rate and rhythm. No murmurs, S3, S4. RESPIRATORY: No accessory muscle use. Clear to auscultation. Breath sounds equal bilaterally. GASTROINTESTINAL: Abdomen soft, non-tender, nondistended. Hepatic and splenic margins not palpable. MUSCULOSKELETAL: Extremities without clubbing, cyanosis, or edema. No obvious deformities. Full ROM of the upper and lower extremities bilaterally. 2+ pulses bilaterally. NEUROLOGICAL: Awake and alert. No obvious cranial nerve deficits. Motor grossly within normal limits. Five out of 5 muscle strength in the arms and legs. Normal speech. PSYCHIATRIC: Appropriate mood and affect; insight and judgment normal. Data Data Last Documented VS Vital Signs Date Time Temp Pulse Resp B/P Pulse Ox O2 Delivery O2 Flow Rate FiO2 01/19/17 19:17 98.1 85 16 207/92 96 Orders Electrocardiogram (01/19/17 22:05) Complete Blood Count With Diff (01/19/17 22:05) Basic Metabolic Panel (Bmp) (01/19/17 22:05) Hydralazine Inj (Apresoline Inj) (01/19/17 22:30) Labs Laboratory Tests Test 01/19/17 22:20 White Blood Count 8.5 TH/MM3 Red Blood Count 4.76 MIL/MM3 Hemoglobin 13.8 GM/DL Hematocrit 41.6 % Mean Corpuscular Volume 87.3 FL Mean Corpuscular Hemoglobin 29.0 PG Mean Corpuscular Hemoglobin 33.2 % Concent Red Cell Distribution Width 14.8 % Platelet Count 223 TH/MM3 Mean Platelet Volume 8.3 FL Neutrophils (%) (Auto) 61.1 % Lymphocytes (%) (Auto) 27.3 % Monocytes (%) (Auto) 8.9 % Eosinophils (%) (Auto) 1.4 % Basophils (%) (Auto) 1.3 % Neutrophils # (Auto) 5.2 TH/MM3 Lymphocytes # (Auto) 2.3 TH/MM3 Monocytes # (Auto) 0.8 TH/MM3 Eosinophils # (Auto) 0.1 TH/MM3 Basophils # (Auto) 0.1 TH/MM3 CBC Comment DIFF FINAL Differential Comment MDM Medical Decision Making Medical Screen Exam Complete: Yes Emergency Medical Condition: Yes Medical Record Reviewed: Yes Differential Diagnosis Hypertensive urgency versus hypertension versus hypertensive emergency versus normal exam versus electrolyte abnormality versus ACS Narrative Course 81-year-old female that presents to the ED for evaluation of hypertension. Patient was properly examined and was found to have signs and symptoms consistent appears to be hypertensive urgency. Patient has no symptoms not even a headache. No chest pain. EKG here was within normal limits. No sign of acute disease. Patient blood pressures in the 200s. Patient had good results on her last visit with he trauma seen. Thing at this time she is unable to give patient an IV dose of the drowsiness he works for her in the past. Given her 10 mg as she already took her blood pressure medications today. Labs will be drawn to make sure patient doesn't have anything acute. Case was signed out to my attending pending med response and disposition. Raul Sheriff Jan 19, 2017 22:49
[2017-01-19 23:00] VITALS: BP 153/78; PULSE 66; RESP 16; O2SAT 98
--- NOTE | 2017-01-19 23:07 | PD ---
Data Data Last Documented VS Vital Signs Date Time Temp Pulse Resp B/P Pulse Ox O2 Delivery O2 Flow Rate FiO2 01/19/17 23:30 72 20 142/76 100 Room Air 01/19/17 19:17 98.1 Orders Electrocardiogram (01/19/17 22:05) Complete Blood Count With Diff (01/19/17 22:05) Basic Metabolic Panel (Bmp) (01/19/17 22:05) Hydralazine Inj (Apresoline Inj) (01/19/17 22:30) Troponin I (01/19/17 22:20) Labs Laboratory Tests Test 01/19/17 22:20 White Blood Count 8.5 TH/MM3 Red Blood Count 4.76 MIL/MM3 Hemoglobin 13.8 GM/DL Hematocrit 41.6 % Mean Corpuscular Volume 87.3 FL Mean Corpuscular Hemoglobin 29.0 PG Mean Corpuscular Hemoglobin 33.2 % Concent Red Cell Distribution Width 14.8 % Platelet Count 223 TH/MM3 Mean Platelet Volume 8.3 FL Neutrophils (%) (Auto) 61.1 % Lymphocytes (%) (Auto) 27.3 % Monocytes (%) (Auto) 8.9 % Eosinophils (%) (Auto) 1.4 % Basophils (%) (Auto) 1.3 % Neutrophils # (Auto) 5.2 TH/MM3 Lymphocytes # (Auto) 2.3 TH/MM3 Monocytes # (Auto) 0.8 TH/MM3 Eosinophils # (Auto) 0.1 TH/MM3 Basophils # (Auto) 0.1 TH/MM3 CBC Comment DIFF FINAL Differential Comment Sodium Level 135 MEQ/L Potassium Level 3.8 MEQ/L Chloride Level 101 MEQ/L Carbon Dioxide Level 26.3 MEQ/L Anion Gap 8 MEQ/L Blood Urea Nitrogen 28 MG/DL Creatinine 1.00 MG/DL Estimat Glomerular Filtration 53 ML/MIN Rate Random Glucose 110 MG/DL Calcium Level 9.3 MG/DL Troponin I LESS THAN 0.02 NG/ML [facility] Medical Record Reviewed: Yes Supervised Visit with YA: No Narrative Course During the course of the patients emergency department visit, the patients history, examination, and differential diagnosis were reviewed with the patient. The patient had IV access obtained and blood work sent for analysis. The patient's case was checked out to me by Ha, the physician assistant coach, at the conclusion of his shift. Please see his complete history and physical. The patient was initially provided hydralazine for her hypertension. The patients laboratory studies were reviewed and remarkable for a white count of 8.5, hemoglobin 13.8,, platelets 223 with a 0.9 monocytes, BNP is remarkable for sodium of 135, BUN 28, GFR 53, glucose 110, troponin I less than 0.02 The patient's blood pressure began to improve, blood pressure initially was 207/ 92 and then came down to 142/76 over time. The patient will be discharged home to follow-up with her primary care physician. The patient is given a prescription for an increase in her lisinopril. The patient is resting comfortably and feels better, is alert and in no distress. The patients results and examination findings were discussed with the patient. The repeat examination is unremarkable and benign. The history, exam, diagnostic testing, and current condition do not suggest any significant pathology to warrant further testing, continued ED treatment, admission, or surgical evaluation at this point. The vital signs have been stable. The patient does not have uncontrollable pain, intractable vomiting, or other significant symptoms. The patient's condition is stable and appropriate for discharge. The patient will pursue further outpatient evaluation with a primary care physician or other designated or consulting physician as indicated in the discharge instructions. The patient expressed understanding and was agreeable with this plan. Diagnosis Primary Impression: HTN (hypertension) Qualified Code: I10 - Essential hypertension Referrals: Primary Care Physician 2 days Patient Instructions: General Instructions, Hypertension (ED) Additional Instruction: The patient was given a prescription for an increase in her dose of lisinopril 2.5 mg to 5 mg. Med/Other Pt SpecificInfo: Prescription(s) given, Existing Med Changed Scripts Lisinopril 5 Mg Tab5 Mg PO DAILY #30 TAB Ref 0 Prov:Cheyanne Mendoza MD 01/19/17 Disposition: 01 DISCHARGE HOME Condition: Stable Cheyanne Mendoza MD Jan 19, 2017 23:07
[2017-01-19 23:15] VITALS: BP 189/84; PULSE 68; RESP 17; O2SAT 98
[2017-01-19 23:30] VITALS: BP 142/76; PULSE 72; RESP 20; O2SAT 100
[2017-01-19] MEDS ORDERED: LISI-519 PO (23:53)
[2017-01-20 00:15] VITALS: BP 153/79
--- NOTE | 2017-01-20 08:54 | EKG ---
Date Performed: 01/19/2017 Time Performed: 22:20:37 PTAGE: 82 years EKG: Sinus rhythm WITH SINUS ARRHYTHMIA MARKED LEFT AXIS DEVIATION NONSPECIFIC ST & T-WAVE ABNORMALITY ABNORMAL ECG PREVIOUS TRACING : 01/17/2017 11.34 DOCTOR: Emerson Torres Interpretating Date/Time 01/20/2017 08:53:19
== END 2017-01-20 00:25 | disposition home or self-care (01) ==
LOC: NEPC 19:14
DX: I10 Essential (primary) hypertension (principal); J44.9 Chronic obstructive pulmonary disease, unspecified; E78.00 Pure hypercholesterolemia, unspecified; F41.9 Anxiety disorder, unspecified; I48.91 Unspecified atrial fibrillation; M19.90 Unspecified osteoarthritis, unspecified site; I49.9 Cardiac arrhythmia, unspecified; R94.31 Abnormal electrocardiogram [ECG] [EKG]; Z79.899 Other long term (current) drug therapy
CPT/HCPCS: 80048; 84484; 85025; 93005; 96374; 99284; J0360

== ENCOUNTER 2017-01-28 19:17 | Emergency (ER) | payer MEDICARE ==
[~2017-01-28] VITALS: Ht 160 cm; Wt 58.7 kg
[~2017-01-28 19:17] MED LIST changes: +ASPI81TA5 PO; -DIGO0.12 PO; +LEXA5TAB PO; +LISI-519 PO
[2017-01-28 19:28] VITALS: BP 194/94; PULSE 65; RESP 18; TEMP 98.2; O2SAT 98
[2017-01-28 19:48] VITALS: BP 176/86; PULSE 78; RESP 16; O2SAT 98
[2017-01-28] MEDS ORDERED: ZOLP5TAB3 PO (19:56)
[2017-01-28 20:36] VITALS: BP 164/89; PULSE 78; RESP 16; O2SAT 98
[2017-01-28 20:58] VITALS: BP 160/78; PULSE 85; RESP 16; O2SAT 98
--- NOTE | 2017-01-28 21:08 | PD ---
HPI Chief Complaint: Hypertension Time Seen by Provider: 20:59 Travel History International Travel<30 days: No Contact w/Intl Traveler<30days: No Traveled to known affect area: No History of Present Illness HPI 82-year-old female presents to the emergency department by nonemergent transport for complaint of feeling anxious with elevated blood pressure. Patient states she's had issues with her blood pressure for the past 9 months. Patient states she is also on anticoagulation therapy for atrial fibrillation also diagnosed within the past 9 months. 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 Also has her blood pressure is been more difficult to manage of late her primary care provider is asking her to have urine collection done to test for other possible causes of her hypertension. Patient has been taking lisinopril and atenolol for blood pressure management and her primary care provider increase the dosages of these medications within the past week to week and a half. Patient denies any headache visual disturbance confusion difficulty with speech or facial droop difficulty swallowing balance disturbance new upper or lower extremity numbness tingling or weakness or ataxia of gait also denies any chest pain palpitations sweats referred neck jaw back shoulder arm or abdominal pain nausea vomiting or new shortness of breath. Patient admits to having COPD as well as her other medical conditions. Patient denies any exacerbation of her COPD. Patient also admits to history of anxiety for which she is prescribed 0.5 mg of lorazepam on an as-needed basis. Patient states today she felt quite fatigued as last evening she started Ambien for the first time and took her first dose of 10 PM last evening for some insomnia and after taking the medication has felt very drained and fatigued with no energy and does not want to take this medication again. Patient didn't contact her managing physician and stated that she did not take this medication with which she concurred. Patient states this evening she took her p.m. dose of fosinopril and atenolol and checked her blood pressure and had not gone down so she became concerned notified her primary care provider who encouraged her to come to the emergency room to have her blood pressure checked. Patient denies any other concerns or complaints and rates her discomfort 0/10 in intensity. 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) Cardiovascular Problems: Yes (HTN AFIB) High Cholesterol: Yes Chemotherapy: No Chest Pain: No Congestive Heart Failure: No COPD: Yes Cerebrovascular Accident: No Diminished Hearing: No Endocrine: No Gastrointestinal Disorders: No GERD: No Genitourinary: No Headaches: No Hiatal Hernia: No Heparin Induced Thrombocytopen: No Hypertension: Yes Immune Disorder: No Implanted Vascular Access Dvce: Yes Kidney Stones: No Neurologic: No Reproductive: No Respiratory: Yes (COPD 3 MASSES) Migraines: No Radiation Therapy: No Renal Failure: No Seizures: No Sickle Cell Disease: No Sleep Apnea: No Ulcer: No ?: Not : 0 Para: 0 Miscarriage: 0 : 0 Past Surgical History Abdominal Surgery: Yes (AAA 04/2011) AICD: No Arteriovenous Shunt: No Body Medical Devices: DIPAK EYE LENS Cardiac Surgery: No Ear Surgery: No Eye Surgery: Yes (DIPAK CATARACT SX) Genitourinary Surgery: No Hysterectomy: Yes Insulin Pump: No Joint Replacement: No Neurologic Surgery: No Pacemaker: No Thoracic Surgery: No Tonsillectomy: Yes Other Surgery: Yes (AAA; HYSTERECTOMY; TONSILECTOMY; CATARACT SX) Social History Alcohol Use: Yes (WINE DAILY) Tobacco Use: No (quit 1998) Substance Use: No Allergies-Medications (Allergen,Severity, Reaction): Coded Allergies: No Known Allergies (Verified , 01/28/17) Reported Meds & Prescriptions Reported Meds & Active Scripts Active Eliquis (Apixaban) 2.5 Mg Tab 2.5 Mg PO BID Reported Zolpidem (Zolpidem Tartrate) 5 Mg Tab 5 Mg PO HS PRN Lexapro (Escitalopram Oxalate) 5 Mg Tab 5 Mg PO HS Aspirin DR (Aspirin) 81 Mg Tabdr 81 Mg PO DAILY Flecainide (Flecainide Acetate) 50 Mg Tab 50 Mg PO BID Atenolol 25 Mg Tab 25 Mg PO DAILY Lorazepam 0.5 Mg Tab 0.5 Mg PO Q6H PRN Zestril (Lisinopril) 2.5 Mg Tab 2.5 Mg PO DAILY Review of Systems Except as stated in HPI: all other systems reviewed are Neg General / Constitutional: No: Fever, Chills Eyes: No: Visual changes HENT: No: Headaches, Vertigo, Lightheadedness, Neck Stiffness, Neck Pain Cardiovascular: No: Chest Pain or Discomfort, Palpitations, Diaphoresis, Syncope, Dyspnea on exertion, Edema, Claudication Respiratory: No: Cough, Shortness of Breath, Wheezing Gastrointestinal: No: Nausea, Vomiting, Abdominal Pain Genitourinary: No: Dysuria, Flank Pain Musculoskeletal: No: Myalgias, Arthralgias, Edema, Pain Skin: No Rash Neurologic: No: Weakness, Dizziness, Syncope, Focal Abnormalities, Coordination Problem, Ataxia, Headache, Change in Mentation, Slurred Speech, Paresthesia Psychiatric: Positive: Anxiety Endocrine: No: Polyuria Hematologic/Lymphatic: No: Lymph Node Enlargement Physical Exam Narrative GENERAL: Well-developed well-nourished female in no acute distress no respiratory distress SKIN: Warm and dry. HEAD: Atraumatic. Normocephalic. EYES: Pupils equal and round. No scleral icterus. No injection or drainage. ENT: No nasal bleeding or discharge. Mucous membranes pink and moist. NECK: Trachea midline. No JVD. CARDIOVASCULAR: Regular rate and rhythm. RESPIRATORY: No accessory muscle use. Clear to auscultation. Breath sounds equal bilaterally. GASTROINTESTINAL: Abdomen soft, non-tender, nondistended. Hepatic and splenic margins not palpable. MUSCULOSKELETAL: Extremities without clubbing, cyanosis, or edema. No obvious deformities. NEUROLOGICAL: Awake and alert. GCS 15. No obvious cranial nerve deficits. Motor grossly within normal limits. Five out of 5 muscle strength in the arms and legs. Sensory exam intact. DTRs 2+ and equal bilateral upper extremities and lower extremities. No limb ataxia. No pronator drift (slightly compromised performance due to left rotator cuff injury). Normal speech. PSYCHIATRIC: Appropriate mood and affect; insight and judgment normal. Data Data Last Documented VS Vital Signs Date Time Temp Pulse Resp B/P Pulse Ox O2 Delivery O2 Flow Rate FiO2 01/28/17 20:58 85 16 160/78 98 Room Air 01/28/17 19:28 98.2 MDM Medical Decision Making Medical Screen Exam Complete: Yes Emergency Medical Condition: Yes Medical Record Reviewed: Yes Differential Diagnosis Hypertension, accelerated hypertension, anxiety, inadequate antihypertensive therapy, also to consider pheochromocytoma, renal failure Narrative Course Patient feels well desirous of no diagnostic testing to be performed; will monitor blood pressure in the emergency department It is 2100 P.m. patient feels well blood pressure continues to trend downward and patient appears stable for outpatient management on her current regimen of antihypertensive medication so: Patient encouraged to discontinue her Ambien which she has already decided to do an hasn't informed from prescribing physician of this. Patient is stable for outpatient management and follow-up with emergency department as needed. Diagnosis Primary Impression: HTN (hypertension) Referrals: Primary Care Physician 1 day Patient Instructions: General Instructions Additional Instructions: Continue current medications as presently prescribed Return to the emergency department for any concerns or change in condition Follow-up with primary care provider call office in a.m. to schedule follow-up appointment Med/Other Pt SpecificInfo: Med Stopped (Ambien) Disposition: 01 DISCHARGE HOME Condition: Stable Reanna Castellanos MD Jan 28, 2017 21:08
== END 2017-01-28 21:27 | disposition home or self-care (01) ==
LOC: PHED 19:17
DX: I10 Essential (primary) hypertension (principal); F41.9 Anxiety disorder, unspecified; Z79.01 Long term (current) use of anticoagulants; Z79.82 Long term (current) use of aspirin; Z87.891 Personal history of nicotine dependence
CPT/HCPCS: 99281

== ENCOUNTER 2017-02-04 06:15 | Day surgery (SDC) | payer MEDICARE ==
[2017-02-04] VITALS (8 sets, daily range): BP systolic 91–169; BP diastolic 48–82; PULSE 54–92; RESP 16–18; TEMP 97.7–98.2; O2SAT 92–95
[~2017-02-04] VITALS: Ht 160 cm; Wt 58.2 kg
[~2017-02-04 06:15] MED LIST changes: -AUGM875T3 PO; -LISI-519 PO; +ZOLP5TAB3 PO
[2017-02-04] MEDS ORDERED: SODIUM CHLOR 0.9% 1000 ML IV SCH (07:00)
[2017-02-04] MEDS ORDERED: LIDOCAINE 1%/EPINEPHrine 1:100,000 SOLN 20 ML VIAL ONE (07:11)
[2017-02-04] MEDS ORDERED: fentaNYL CITRATE 250 MCG/5 ML AMP ONE (07:51)
[2017-02-04] MEDS ORDERED: MIDAZOLAM HCL 2 MG/2 ML VIAL ONE (07:51)
--- NOTE | 2017-02-04 08:38 | PD.RAD ---
Post CT Procedure Prog Note Pre Procedure Diagnosis: (1) Mass of right lung Post Procedure Diagnosis: (1) Mass of right lung Procedure Date: Feb 04, 2017 Supervising Radiologist: Ajit Castro Estimated blood loss: 2cc Anesthesia: Conscious Sedation Plan of Activity Patient to Unit: ROPU Patient Condition: Good Additional Comments: target RML mass See PACS Report for procedural detail/treatment Biopsy Imaging Guidance: CT Side: Right Biopsy Procedure: Lung Site: right middle lobe Specimen: Core Biopsy Plan to ROPU for monitoring. Ajit Castro MD Feb 04, 2017 08:38
[2017-02-04] MEDS ORDERED: oxyCODONE/ACETAMINOPHEN 5 MG/325 MG TAB PO PRN (09:00)
--- NOTE | 2017-02-04 10:00 | RADRPT ---
EXAM DATE/TIME: 02/04/2017 09:18 [facility] COMPARISON: CT THORAX W CONTRAST, January 17, 2017, 12:50. INDICATIONS : Pneumothorax. MEDICAL HISTORY : Aneurysm, abdominal. Cardiovascular disease. Hypertension. SURGICAL HISTORY : Hysterectomy. ENCOUNTER: Initial ACUITY: 1 day PAIN SCORE: 0/10 LOCATION: Bilateral chest FINDINGS: No significant pneumothorax. Redemonstration of masses in the right upper and lower lung zones. Cardi ac mediastinal contours are within normal limits. Bony thorax is intact. CONCLUSION: 1. No significant pneumothorax status post right lung mass biopsy. Catrachito Simeon MD on February 04, 2017 at 9:56 Board Certified Radiologist. This report was verified electronically.
--- NOTE | 2017-02-04 11:45 | RADRPT ---
EXAM DATE/TIME: 02/04/2017 10:59 [facility] COMPARISON: No previous studies available for comparison. INDICATIONS : Pneumothorax MEDICAL HISTORY : Aneurysm, abdominal. Cardiovascular disease. Hypertension. SURGICAL HISTORY : Hysterectomy. ENCOUNTER: Subsequent ACUITY: 1 day PAIN SCORE: 0/10 LOCATION: Bilateral chest FINDINGS: Patient is status post biopsy of right lung mass. No pneumothorax is identified. No effusion. CONCLUSION: 1. No pneumothorax identified postbiopsy. Master Mtz MD on February 04, 2017 at 11:43 Board Certified Radiologist. This report was verified electronically.
--- NOTE | 2017-02-04 13:53 | RADRPT ---
EXAM DATE/TIME: 02/04/2017 08:06 [facility] COMPARISON: CT THORAX W CONTRAST, January 17, 2017, 12:50. INDICATIONS : Right lung mass. SEDATION TIME: 15 minutes BIOPSY SITE: Right lung MEDICATION(S): 1.) 1.5 mg midazolam (Versed) IV 2.) 75 mcg fentanyl (Sublimaze) IV DEVICE(S): 1.) 18 gauge Mosley blunt needle 5cm 2.) 20 gauge Temno core biopsy needle 11cm MEDICAL HISTORY : Cardiovascular disease. Hypertension. Chronic obstructive pulmonary disease. SURGICAL HISTORY : None. ENCOUNTER: Initial ACUITY: 1 day PAIN SCORE: 0/10 LOCATION: Right chest A total of six core specimen(s) were obtained and sent to the laboratory for pathologic evaluation. PROCEDURE: 1. CT guided lung biopsy. 2. Conscious sedation with continuous EKG and oximetry monitoring. Prior to the procedure informed consent was obtained. Any appropriate prior imaging studies were rev iewed. There is a right middle lobe and right upper lobe pulmonary mass. Based on location, the right middle lobe mass is likely easiest to access. Using automated exposure control and adjustment of the mA and/or kV according to patient size, radiation dose was kept as low as reasonably achievable to o btain optimal diagnostic quality images. DICOM format image data is available electronically for rev iew and comparison. The site was prepped in a sterile fashion. Full sterile technique was used, including cap, mask, any rile gloves and gown and a large sterile sheet. Hand hygiene and 2% chlorhexidine and/or betadine/al cohol prep was utilized per protocol for cutaneous antisepsis. The skin and subcutaneous tissues wer e infiltrated with local anesthetic solution. With CT guidance the right lower lobe pulmonary mass was localized. Biopsy was performed using the pr escribed needle as above. Adequate hemostasis was obtained with compression at the puncture site. Follow-up CT scan reveals no pneumothorax or concerning abnormality. Conscious sedation was performed with the prescribed dosages and duration as above in the presence of an independent trained radiology nurse to assist in the monitoring of the patient. EKG and oximetry remained stable throughout the procedure. The patient tolerated the procedure well and there were no complications. The patient was sent to Radiology Outpatient Unit in stable condition. CONCLUSION: Uncomplicated CT guided biopsy of the right middle lobe pulmonary mass. Ajit Castro MD on February 04, 2017 at 13:50 Board Certified Radiologist. This report was verified electronically.
== END 2017-02-04 12:20 | disposition home or self-care (01) ==
LOC: HRAD 06:15 → HRIP 06:42 → HRAD 12:20
PROVIDERS: ATTEND Family Medicine
DX: C34.91 Malignant neoplasm of unspecified part of right bronchus or lung (principal); F17.210 Nicotine dependence, cigarettes, uncomplicated; I25.10 Atherosclerotic heart disease of native coronary artery without angina pectoris; I10 Essential (primary) hypertension; J44.9 Chronic obstructive pulmonary disease, unspecified
CPT/HCPCS: 32405; 71010; 77012; 87015; 87070; 87102; 87116; 87205; 87206; 88305; 88341; 88342; J2250; J3010; J7030

== ENCOUNTER → 2017-12-16 | Day surgery (SDC) | payer MEDICARE ==
[~2017-12-16] MED LIST changes: -ASPI81TA5 PO; +COLA100C5 PO; +ECASA81 PO; +FOLI800T PO; +HYDR-3516 PO; +IOHEXOL 180 MG/ML 20 ML VIAL (for RAD DIAG) EPIDURAL ONE; +LIDOCAINE HCL 1% 30 ML VIAL INFIL ONE; -LORA-373 PO; +LORA0.5T PO; +MEPERIDINE HCL 25 MG/ML VIAL IV ONE; +PRED10 PO; +PROPOFOL 200 MG/20 ML AMP IV ONE; +TRIAMCINOLONE ACETONIDE 40 MG/ML VIAL NERV BLOCK ONE
--- NOTE | 2017-12-16 11:49 | M6 ---
cc: Avril Bhakta MD, Jeffrey DO DATE: 12/16/2017 PROCEDURE: Fluoroscopically-guided right L3-L4 and right L4-L5 transforaminal nerve root injection. PREPROCEDURE NOTE: Ms. Tariq is a 82-year-old female referred by Dr. Jesu Keane. Dr. Keane was kind enough to call me personally to discuss the patient. Prior to seeing the patient her medical records were reviewed. She has hypertension, chronic obstructive pulmonary disease, previous repair of aortic aneurysm and atrial fibrillation. PAST SURGICAL HISTORY: Includes hysterectomy, cataract surgery, tonsillectomy. MEDICATIONS: Include: Metoprolol, Eliquis, lisinopril, folic acid, lorazepam, hydrocodone, prednisone and Colace. She has stopped her Eliquis for 3 days. The patient is complaining of pain in her right lower extremity across the lateral aspect of her right thigh down to the knee, but seldom if ever below the knee. IMAGING STUDIES: She had an MRI done 09/14/2017, at the L1-2 level, there was a left-sided bulging disk causing some foraminal stenosis and encroachment on the left L1 nerve root. At the L3-L4 level, there was a large right-sided bulging disk causing severe right foraminal stenosis and encroachment on the right S1 nerve root. At the L4-L5 level, she had a previous right-sided laminectomy and at the L5-S1 level, she had a bulging disk with some encroachment on the bilateral L5 nerve roots with foraminal stenosis. IMPRESSION: Probable right L3 radiculopathy. PROCEDURE NOTE: History and physical was completed and signed. Consent was signed. Procedure site was marked. Medications were listed and reconciled. Pain score was recorded. Allergies were noted. Time out was taken. Fluoroscopy time was recorded where applicable. Sedation was administered or directed by Dr. Bhakta. The patient was given oxygen. The patient was monitored by a registered nurse. Total procedure time was greater than 15 minutes. IV was started. Blood pressure cuff, pulse oximeter and EKG were applied. The patient was placed in the prone position on a Artie table, sedated with small amounts of Propofol titrated to effect. Vital signs were monitored and remained stable throughout the procedure. Lumbar area was prepped with alcohol and 10% Betadine solution, draped with sterile drapes. Fluoroscopy was used to visualize the L3-L4 and L4-L5 neural foramen. Separate sterile 3-1/2 inch, 22-gauge Chiba needles were advanced into the dorsal aspect of each foramen. Omnipaque dye was injected and seen to spread distally along the nerve root and at this point, the patient was given 3 mL of 1% Xylocaine, 3 mL of Omnipaque and 40 mg of Kenalog on each nerve root. Following the procedure, the patient was taken to the recovery room with stable vital signs, neurologically intact. W. Eliot Bhakta MD [facility]/TL , 11:17 AM , 11:47 AM
--- NOTE | 2017-12-16 11:51 | M6 ---
cc: Avril Bhakta MD DATE: 12/16/2017 PROCEDURE PERFORMED: Epidurogram. An epidurogram was done today on Ms. Tariq. Images were saved to the patient's chart. The patient has severe right lower extremity pain extending down across the thigh and to the knee. She has had MRI showing severe foraminal stenosis at L3-L4 and at L5-S1. She also has a previous right-sided laminectomy at L4-L5. The purpose of the epidurogram was to determine if there was good flow of medication along the nerve roots and whether or not this medication would flow through the neural foramen or be obstructed by her severe spinal stenosis. On the right L3 and right L4 nerve root, the patient was given 3 mL of Omnipaque dye. The dye spread distally along each nerve root, but did not spread through the neural foramen, toward the central epidural space. I believe this is because of the severe spinal stenosis at each one of those levels and if we do a repeat procedure on her, I probably will elect to perform a fluoroscopically-guided interlaminar epidural steroid injection with the injectate being delivered into the central epidural space since our medication today did not travel into that area. MD CHEN Yoder/EMILY , 11:20 AM , 11:50 AM
== END | disposition home or self-care (01) ==
LOC: PHSDC 09:28
PROVIDERS: ATTEND Pain Medicine Interventional Pain Medicine
DX: M48.061 Spinal stenosis, lumbar region without neurogenic claudication (principal); I10 Essential (primary) hypertension; J44.9 Chronic obstructive pulmonary disease, unspecified; I48.91 Unspecified atrial fibrillation; Z79.899 Other long term (current) drug therapy; Z79.01 Long term (current) use of anticoagulants
CPT/HCPCS: 64483; 64484; 99152; J2175; J3301; Q9965